=== PATIENT | male | born 1990 | race Caucasian/White ===

== ENCOUNTER 2020-10-15 19:26 | Emergency (ER) | payer OTHER, SELFPAY ==
[2020-10-15 19:29] VITALS: BP 142/58; PULSE 82; RESP 16; TEMP 36.7; O2SAT 99; BMI 28.0
--- NOTE | 2020-10-15 20:41 | PC.NURSE ---
PATIENT PRESENTS TO ED6 WITH C/O SUICIDAL IDEATION. PT STATES THAT HE RECENTLY LEFT [facility]. EXPRESSING FRUSTRATIONS WITH CARE AT [facility] TO THIS RN, STATING I SLEPT THROUGH SOME OF MY MED DOSES BECAUSE I WAS SO TIRED, AND THEY JUST TREATED ME LIKE CRAP AND TOLD ME TO GO SOMEWHERE ELSE, SO I CAME HERE. I'M JUST ON MY LAST STRAW, I'M JUST DONE. I NEED TO GET HELP FOR ADDICTION, BUT I DON'T KNOW WHAT TO DO ANYMORE. IF I CAN'T GET HELP NOW, I DON'T KNOW WHAT I'M GONNA DO. PT DENIES HOMICIDAL IDEATION, REMAINS CALM/COOPERATIVE WITH STAFF. ENCOURAGED TO VENT FEELINGS AND ASK QUESTIONS TO THIS RN WHENEVER HE NEEDS IT. PT STATES THANK YOU, I APPRECIATE IT. AWAITING PRIMARY ED MD EVALUATION. WILL CONTINUE TO MONITOR.
--- NOTE | 2020-10-15 20:47 | PC.NURSE ---
THIS RN SPOKE WITH JALIL (CARE TEAM) OVER THE PHONE, PLAN FOR THIS PATIENT TO SPEAK WITH REEMA (FIRE ALARM MECHANIC). JALIL TO SPEAK WITH REEMA REGARDING THIS PATIENT.
--- NOTE | 2020-10-15 20:50 | PC.NURSE ---
REEMA (LUMBER CUTTER) AT BEDSIDE SPEAKING WITH PATIENT.
[2020-10-15 20:56] LABS: Amphetamine Screen Urine Not Detected (Not Detect); Barbiturates, Urine Not Detected (Not Detect); Benzodiazepines Screen Urine POSITIVE (Not Detect); Cannabinoid Screen Urine POSITIVE (Not Detect); Cocaine Screen Urine POSITIVE (Not Detect); Opiate Screen Urine POSITIVE (Not Detect); Phencyclidine Screen Urine Not Detected (Not Detect)
[2020-10-15 21:02] LABS: Glucose Urine UA NEG (NEG); Leukocyte Esterase Urine NEG (NEG); Nitrite Urine NEG (NEG); PH 5.5 (5.0-8.0); Specific Gravity - Urine >= 1.030 (1.005-1.025); Urine Blood NEG (NEG); Urine Ketones NEG (NEG); Urine Protein NEG (NEG-TRACE)
--- NOTE | 2020-10-15 21:02 | PC.NURSE ---
PER REEMA (WET WHEELER), PLAN TO BE SEEN BY Vamshi.
[2020-10-15 21:14] LABS: Appearance Urine CLEAR; Color Urine YELLOW
--- NOTE | 2020-10-15 21:59 | ED_ITS ---
HPI - Psych General Chief Complaint: Psychiatric Symptoms Stated Complaint: SUICIDAL Time Seen by Provider: 10/15/20 21:03 Source: patient Mode of arrival: ambulatory Limitations: no limitations History of Present Illness HPI Narrative: 30-year-old male presents with suicidal ideation and substance abuse. States that he will either overdose or jump in front of a moving vehicle. [address] He does not report any physical complaints at this time. MD complaint: suicidal ideation, feels depressed and substance abuse Onset (ago): year(s) Duration: constant History of same: Yes Relieving factors: none Context: recent drug abuse Associated psychiatric symptoms: depression and suicidal ideation Associated symptoms: insomnia Treatments prior to arrival: placed on mental health hold If self harm: admits thoughts of self harm and has plan Related Data Home Medications Medication Instructions Recorded Confirmed levothyroxine 75 mcg PO DAILY 10/15/20 10/15/20 Allergies Allergy/AdvReac Type Severity Reaction Status Date / Time No Known Allergies Allergy Verified 10/15/20 20:48 [No Known Allergies*] Review of Systems Review of Systems: Constitutional: No Fever, No Chills ENT/Mouth: No sore throat, No Rhinorrhea Eyes: No Eye Pain, No Swelling, No Redness Cardiovascular: No Chest Pain, No SOB Respiratory: No Cough, No Sputum Gastrointestinal: No Nausea, No Vomiting, No Diarrhea, No abdominal Pain Genitourinary: No Dysuria, No Hematuria Musculoskeletal: No joint pain, No Myalgias, No Joint Swelling Skin: No Skin Lesions, No rash Neuro: No Weakness, No Numbness, No Loss of Consciousness, No Dizziness, No Headache Psych: No Anxiety, Positive Depression, positive SI/HI/AH/VH, positive opioid, benzo, cocaine and marijuana use Heme/Lymph: No Bruising, No Bleeding,No Lymphadenopathy Endocrine: No Polyuria, No Polydipsia Yes all other systems are reviewed and are negative [facility] Past Medical History Attestation statement: The following information was validated with the patient. Social History Social History Use of substances other than those prescribed or required for medical reasons: Yes Substance Use Type: Crack/Cocaine, Heroin and Marijuana Substance Use Frequency: Daily Last Used Substance: Hours (ago) Any prior treatment program specific to substance use: Yes ([facility] AT [facility]) Advance Directives: No Advance Directives Information Provided: Yes Physical Exam Vital Signs: Vital Signs: Last Vital Signs Temp 98.0 F 10/16/20 00:05 Pulse 64 10/16/20 00:05 Resp 16 10/16/20 02:00 BP 100/50 L 10/16/20 00:05 Pulse Ox 97 10/16/20 00:05 Body Mass Index 28.0 Appearance: Alert. Oriented X3. moderate distress secondary to substance abuse Eyes: Pupils equal, round and reactive to light. ENT: Pharynx normal. Neck: Normal inspection. Neck supple. CVS: Normal heart rate and rhythm. Pulses normal. Respiratory: No respiratory distress. Breath sounds normal. Abdomen: Soft and nontender. Skin: Skin warm and dry. Normal skin color. Normal skin turgor. Extremities: No lower extremity edema. Neuro: No motor deficit. No sensory deficit. Course Course Course Narrative: 30-year-old male with significant history of psychiatric problems and substance abuse presents with suicidal ideation has a plan to overdose or jump in front of a car. Is asking for detox or inpatient admission. Crisis consult pending. N attempted to evaluate at 2:00 a.m., patient stated that he was tired and would like to sleep, would appreciate if consult could Be attempted in the morning. patient's wishes respected. MDM - Psych Differential Diagnosis Differential diagnosis: Likely acute psychosis, suicidal ideation, depression, drug-induced psychotic disorder and substance abuse Restraints Face to Face Assessment: Face to Face Assessment: Current Situation: After assessment of the patient, a review of the pertinent medical record and a discussion with nursing staff, I feel the patient requires a restrain intervention. Reaction To: [] Medical Condition: [] Behavioral State: [] Continued Need: [] Medical Records Attestation: I reviewed the patient's medical records. Lab Data Attestation: I reviewed the patient's lab results. Result diagrams: 10/15/20 22:32 Labs: Lab Results 10/15/20 10/15/20 10/15/20 Range/Units 20:19 20:30 22:32 WBC 7.8 (4.8-10.8) X10*3/uL RBC 4.27 L (4.60-5.80) X10*6/uL Hgb 12.0 L (14.0-18.0) g/dl Hct 36.7 L (42-52) % MCV 85.9 (80-98) fL MCH 28.1 (27.0-33.0) pg MCHC 32.7 (31.0-36.0) g/dl RDW 13.0 (11.0-16.0) % Plt Count 244 (160-400) X10*3/uL MPV 9.9 (9.4-12.4) fL Immature Gran % (Auto) 0.1 (0.0-0.4) % Neut % (Auto) 45.6 (45-73) % Lymph % (Auto) 28.8 (20-40) % [place] % (Auto) 9.9 (2-11) % Eos % (Auto) 15.2 H (0-4) % Baso % (Auto) 0.4 (0-2) % Lymph # (Auto) 2.2 (1.2-4.9) X10*3/uL [place] # (Auto) 0.8 (0.1-1.2) X10*3/uL Eos # (Auto) 1.2 H (0.0-0.4) X10*3/uL Baso # (Auto) 0.0 (0.0-0.2) X10*3/uL Abs Immat Gran (auto) 0.01 (0.00-0.03) X10*3/uL Absolute Neuts (auto) 3.5 (2.0-8.3) X10*3/uL Absolute Nucleated RBC 0.000 (0.0-0.012) X10*3/uL Nucleated RBC % (auto) 0.0 (0.0-0.2) /100WBC Urine Color YELLOW Urine Appearance CLEAR Urine pH 5.5 (5.0-8.0) Ur Specific [place] >= 1.030 H (1.005-1.025) Urine Protein NEG (NEG-TRACE) MG/DL Urine Glucose (UA) NEG (NEG) MG/DL Urine Ketones NEG (NEG) MG/DL Urine Blood NEG (NEG) Urine Nitrite NEG (NEG) Ur Leukocyte Esterase NEG (NEG) Urine RBC 0 (0) /HPF Urine WBC 0 (0-4) /HPF Ur Squamous Epith Cells NONE /LPF Calcium Oxalate Crystal TRACE /LPF Urine Bacteria NONE /LPF Urine Opiates Screen POSITIVE H (Not Detect) Ur Barbiturates Screen Not Detected (Not Detect) Ur Phencyclidine Scrn Not Detected (Not Detect) Ur Amphetamines Screen Not Detected (Not Detect) U Benzodiazepines Scrn POSITIVE H (Not Detect) Urine Cocaine Screen POSITIVE H (Not Detect) U Marijuana (THC) Screen POSITIVE H (Not Detect) Ethyl Alcohol mg/dL 10/15/20 Range/Units 22:32 WBC (4.8-10.8) X10*3/uL RBC (4.60-5.80) X10*6/uL Hgb (14.0-18.0) g/dl Hct (42-52) % MCV (80-98) fL MCH (27.0-33.0) pg MCHC (31.0-36.0) g/dl RDW (11.0-16.0) % Plt Count (160-400) X10*3/uL MPV (9.4-12.4) fL Immature Gran % (Auto) (0.0-0.4) % Neut % (Auto) (45-73) % Lymph % (Auto) (20-40) % [place] % (Auto) (2-11) % Eos % (Auto) (0-4) % Baso % (Auto) (0-2) % Lymph # (Auto) (1.2-4.9) X10*3/uL [place] # (Auto) (0.1-1.2) X10*3/uL Eos # (Auto) (0.0-0.4) X10*3/uL Baso # (Auto) (0.0-0.2) X10*3/uL Abs Immat Gran (auto) (0.00-0.03) X10*3/uL Absolute Neuts (auto) (2.0-8.3) X10*3/uL Absolute Nucleated RBC (0.0-0.012) X10*3/uL Nucleated RBC % (auto) (0.0-0.2) /100WBC Urine Color Urine Appearance Urine pH (5.0-8.0) Ur Specific [place] (1.005-1.025) Urine Protein (NEG-TRACE) MG/DL Urine Glucose (UA) (NEG) MG/DL Urine Ketones (NEG) MG/DL Urine Blood (NEG) Urine Nitrite (NEG) Ur Leukocyte Esterase (NEG) Urine RBC (0) /HPF Urine WBC (0-4) /HPF Ur Squamous Epith Cells /LPF Calcium Oxalate Crystal /LPF Urine Bacteria /LPF Urine Opiates Screen (Not Detect) Ur Barbiturates Screen (Not Detect) Ur Phencyclidine Scrn (Not Detect) Ur Amphetamines Screen (Not Detect) U Benzodiazepines Scrn (Not Detect) Urine Cocaine Screen (Not Detect) U Marijuana (THC) Screen (Not Detect) Ethyl Alcohol < 10 mg/dL Discharge Plan Discharge Clinical Impression: Acute psychosis, Chronic schizophrenia, Suicidal ideation Drug-induced psychotic disorder Qualifiers: Complication of substance-induced condition: with hallucinations Qualified Code(s): F19.951 - Other psychoactive substance use, unspecified with psychoactive substance-induced psychotic disorder with hallucinations Prescriptions: No Action levothyroxine 75 mcg Tablet 75 mcg PO DAILY RF: 0
[2020-10-15 22:26] LABS: Calcium Oxalate Crystals Urine TRACE /LPF; RBC Urine 0 /HPF (0); WBC Urine 0 /HPF (0-4)
--- NOTE | 2020-10-15 22:33 | PC.NURSE ---
LABS DRAWN AND SENT FOR ANALYSIS. AWAITING RESULTS.
[2020-10-15 22:38] LABS: Basophils Percent Auto 0.4 % (0-2); Eosinophils Absolute Auto 1.2 X10*3/uL (0.0-0.4); Eosinophils Percent Auto 15.2 % (0-4); Hematocrit 36.7 % (42-52); Imm Gran Abs Auto 0.01 X10*3/uL (0.00-0.03); Imm Gran Pct Auto 0.1 % (0.0-0.4); Lymphocytes Absolute Auto 2.2 X10*3/uL (1.2-4.9); Lymphocytes Percent Auto 28.8 % (20-40); MANUAL DIFF FLAG NO; Mean Corpuscular HGB Conc 32.7 g/dl (31.0-36.0); Mean Corpuscular Hemoglobin 28.1 pg (27.0-33.0); Mean Corpuscular Volume 85.9 fL (80-98); Mean Platelet Volume 9.9 fL (9.4-12.4); Monocytes Absolute Auto 0.8 X10*3/uL (0.1-1.2); Monocytes Percent Auto 9.9 % (2-11); Neutrophils Absolute Auto 3.5 X10*3/uL (2.0-8.3); Neutrophils Percent Auto 45.6 % (45-73); Platelet Count 244 X10*3/uL (160-400); Red Blood Count 4.27 X10*6/uL (4.60-5.80); White Blood Count 7.8 X10*3/uL (4.8-10.8)
[2020-10-15 22:43] VITALS: RESP 16
[2020-10-15 23:00] LABS: Ethanol < 10 mg/dL
--- NOTE | 2020-10-15 23:33 | PC.NURSE ---
PATIENT SLEEPING AT THIS TIME. WILL CONTINUE TO MONITOR.
[2020-10-16 00:05] VITALS: BP 100/50; PULSE 64; RESP 16; TEMP 36.7; O2SAT 97
[2020-10-16 02:00] VITALS: RESP 16
--- NOTE | 2020-10-16 02:00 | PC.NURSE ---
PATIENT SLEEPING AT THIS TIME. N TO EVALUATE LATER THIS SHIFT, PER [facility] STAFF MEMBER. WILL CONTINUE TO MONITOR.
--- NOTE | 2020-10-16 02:44 | PC.NURSE ---
[facility] ENTERED PATIENT'S ROOM FOR EVALUATION. PATIENT BECAME IRRITATED, STATING IT'S THE MIDDLE OF THE NIGHT! I DON'T WANT TO REPEAT MY STORY AND TALK ABOUT MY LIFE AND SHIT RIGHT NOW! THIS RN ENTERED ROOM TO DE-ESCALATE PATIENT. PATIENT APOLOGIZED FOR BRIEF OUTBURST, STATED I JUST DON'T WANT TO TALK RIGHT NOW, CAN THEY COME TALK TO ME AT A NORMAL TIME OF DAY? [facility] AGREED TO EVALUATE PATIENT LATER DURING DAY SHIFT. PT REQUESTING TO SLEEP AT THIS TIME. THIS RN AGAIN ENCOURAGED PATIENT TO VERBALIZE FEELINGS. PATIENT STATED, THANK YOU .
--- NOTE | 2020-10-16 07:19 | PC.NURSE ---
Report received from [facility]. Pt awake resting in bed, no concerns reported.
[2020-10-16 07:24] VITALS: BP 124/46; PULSE 63; RESP 17; TEMP 36.6; O2SAT 99
[2020-10-16 08:00] VITALS: RESP 16
--- NOTE | 2020-10-16 08:50 | PC.NURSE ---
[facility] in to evaluate
--- NOTE | 2020-10-16 09:59 | PC.NURSE ---
Pt spoke w/ [facility], reports that they have a bed for him at 1300. Pt states that he is in agreement w/ plan, but would like to go home first to get clothes.
[2020-10-16 10:00] VITALS: RESP 20
--- NOTE | 2020-10-16 10:17 | PC.NURSE ---
YEN aware of [facility] plan to admit pt at 1300 today. Pt states he is in agreement w/ plan, denies SI, denies any thoughts to harm himself. Bus pass obtained.
== END 2020-10-16 10:34 | disposition home or self-care (01) ==
PROVIDERS: Nurse Practitioner Family; Emergency Provider Internal Medicine; PCP Family Medicine Geriatric Medicine
DX: F33.1 Major depressive disorder, recurrent, moderate (principal); F19.951 Other psychoactive substance use, unspecified with psychoactive substance-induced psychotic disorder with hallucinations; R45.851 Suicidal ideations; F20.9 Schizophrenia, unspecified; F11.90 Opioid use, unspecified, uncomplicated; F14.90 Cocaine use, unspecified, uncomplicated; F12.90 Cannabis use, unspecified, uncomplicated
CPT/HCPCS: 36415; 80307; 80320; 81001; 85025; 99285